=== PATIENT | male | born 1980 | race American Indian/Alaskan Native ===

== ENCOUNTER 2016-12-05 13:48 | Emergency (ER) | payer OTHER ==
[2016-12-05 14:27] VITALS: BP 138/90
[2016-12-05] MEDS ORDERED: DUONEB 0.5 MG-3 MG/3 ML SOLN IH ONE ×3 (15:14→16:57)
[2016-12-05] MEDS ORDERED: MOTRIN PO ONE (15:17)
--- NOTE | 2016-12-05 15:34 | Emergency Department Report ---
Upper Respiratory HPI - HPI Duration: 3 Days URI Symptoms: Rhinorrhea: Yes, Sore Throat: No, Ear Pain: No, Cough: Yes, Shortness of Breath: No, Sick Contacts: No, Unable to Take Fluids: No, Urine Output Abnormal: No, Listless Behavior: No Other History: This is a 36 year male that presents with a cough and diagnosed with past 3 days. Patient stated has seasonal pollen allergies in the past 2 days he has been cutting grass. Patient stated right after cutting grass patient started to experience a cough or runny nose. Patient denies any mucous with cough, fever, chills, shortness of breath, chest pain, nausea or vomiting. Patient has a history of asthma. Last asthma treatment was with albuterol inhaler which was yesterday. Patient does not seem toxic or ill appearance. No signs of distress noted. Patient stated is currently wheezing but with no shortness of breath. She stated has quit smoking tobacco since Monday. Patient denies the diagnosed with COPD. Patient stated has been following with her primary care doctor for asthma and stated that his pulse is normally between 91-96. <RENZO HUI - Last Filed: 12/05/16 17:52> <BORIS HAY - Last Filed: 12/07/16 08:20> - HPI Chief Complaint: Upper Respiratory Infection Stated Complaint: SINUS/COUGH Time Seen by Provider: 12/05/16 15:03 - Home Meds and Allergies Home Medications: Previous Rx's Medication Instructions Recorded Last Taken Type ALBUTEROL Inhaler [ProAir HFA 2 puff IH QID PRN #1 inhalation 12/05/16 Unknown Rx Inhaler] Prednisone [predniSONE] 40 mg PO QDAY 5 Days 12/05/16 Unknown Rx Allergies/Adverse Reactions: Allergies Allergy/AdvReac Type Severity Reaction Status Date / Time No Known Allergies Allergy Unverified 12/05/16 14:23 ED Review of Systems ROS: Stated complaint: SINUS/COUGH Other details as noted in HPI Constitutional: denies: chills, fever Eyes: denies: eye pain, eye discharge, vision change ENT: denies: ear pain, throat pain Respiratory: cough (nonproductive), wheezing. denies: orthopnea, shortness of breath, SOB with exertion, SOB at rest, stridor Cardiovascular: denies: chest pain, palpitations, dyspnea on exertion, edema, syncope Endocrine: no symptoms reported Gastrointestinal: denies: abdominal pain, nausea, diarrhea Genitourinary: denies: urgency, dysuria Musculoskeletal: denies: back pain, joint swelling, arthralgia Skin: denies: rash, lesions Neurological: denies: headache, weakness, paresthesias Psychiatric: denies: anxiety, depression Hematological/Lymphatic: denies: easy bleeding, easy bruising <RENZO HUI - Last Filed: 12/05/16 17:52> ROS: Stated complaint: SINUS/COUGH Other details as noted in HPI <MENDELCHRISTYBORIS - Last Filed: 12/07/16 08:20> ED Past Medical Hx - Past Medical History Previous Medical History?: Yes Hx Hypertension: Yes Additional medical history: High cholesterol - Surgical History Past Surgical History?: No - Social History Smoking Status: Current Some Day Smoker Substance Use Type: Non Opiate Pain, Other <RENZO HUI - Last Filed: 12/05/16 17:52> <BORIS HAY - Last Filed: 12/07/16 08:20> - Medications Home Medications: Home Medications Medication Instructions Recorded Confirmed Last Taken Type ALBUTEROL Inhaler [ProAir HFA 2 puff IH QID PRN #1 inhalation 12/05/16 Unknown Rx Inhaler] Prednisone [predniSONE] 40 mg PO QDAY 5 Days 12/05/16 Unknown Rx ED Bronchiolitis Physical Exam - Exam General: Vital signs noted. No distress. Alert and acting appropriately. O2 sats 94. As per patient is normal for him. Bilateral wheezing or upper lower lobes. No symptoms of shortness of breath noted. No chest pain noted. Patient nontoxic or ill appearance. 2+ tonsils. No erythema noted. Normal TMs. Rhinorrhea present. HEENT: Yes Rhinorrhea, No Pharyngeal Erythema, No Conjuctival Injection, No Dry Mucous Membranes Ear: Neither TM Bulge, Neither TM Erythema, Neither EAC Discharge Neck: No Adenopathy, No Rigidity Lungs: Yes Good Air Exchange, Yes Wheezes (bilateral wheezing upper and lower lobes), No Clear Lung Sounds (bilateral wheezing and upper lower lobes.), No Stridor, No Cough, No Nasal Flaring, No Retractions, No Use of Accessory Muscles Heart: Yes Regular, No Murmur Abdomen: Yes Normal Bowel Sounds, No Tenderness, No Peritoneal Signs Skin: No Rash, No Eczema Neurologic: Alert and oriented, no deficits. Musculoskeletal: Unremarkable. <RENZO HUI - Last Filed: 12/05/16 17:52> - Exam General: Vital signs noted. No distress. Alert and acting appropriately. Neurologic: Alert and oriented, no deficits. Musculoskeletal: Unremarkable. <BORIS HAY - Last Filed: 12/07/16 08:20> ED Bronchiolitis Tests - Testing Other Tests: Peak flow meter- 200 before treatment. 240 after 1st treatment at 1445. 290 after 3rd treatment at 1515 <RENZO HUI - Last Filed: 12/05/16 17:52> Treatments - Treaments Treatment: Improved Albuterol (duoneb x3 ) <RENZO HUI - Last Filed: 12/05/16 17:52> ED Physical Exam - General Limitations: No Limitations General appearance: alert, in no apparent distress - Head Head exam: Present: atraumatic, normocephalic - Eye Eye exam: Present: normal appearance, PERRL, EOMI - ENT ENT exam: Present: normal exam, normal orophraynx, mucous membranes moist, TM's normal bilaterally - Neck Neck exam: Present: normal inspection, full ROM. Absent: tenderness, lymphadenopathy - Respiratory Respiratory exam: Present: normal lung sounds bilaterally, wheezes (bilateral upper and lower lobes). Absent: respiratory distress, rales, rhonchi, stridor, chest wall tenderness, accessory muscle use, decreased breath sounds - Cardiovascular Cardiovascular Exam: Present: regular rate, normal rhythm. Absent: systolic murmur, diastolic murmur, rubs, gallop - GI/Abdominal GI/Abdominal exam: Present: soft, normal bowel sounds. Absent: distended, tenderness, guarding, rebound, rigid - Rectal Rectal exam: Present: deferred - Extremities Exam Extremities exam: Present: normal inspection, normal capillary refill (<2 seconds). Absent: full ROM, tenderness, pedal edema, calf tenderness - Back Exam Back exam: Present: normal inspection, full ROM. Absent: tenderness, CVA tenderness (R), CVA tenderness (L) - Neurological Exam Neurological exam: Present: alert, oriented X3, CN II-XII intact, normal gait - Psychiatric Psychiatric exam: Present: normal affect, normal mood - Skin Skin exam: Present: warm, dry, intact, normal color. Absent: rash <RENZO HUI - Last Filed: 12/05/16 17:52> ED Course Vital Signs 12/05/16 14:24 Temperature 98.1 F Pulse Rate 108 H Respiratory 20 Rate Blood Pressure 138/90 O2 Sat by Pulse 94 Oximetry Vital Signs 12/05/16 12/05/16 12/05/16 14:24 15:33 15:34 Temperature 98.1 F Pulse Rate 108 H Pulse Rate [ 112 H 112 H Anterior Bilateral Throughout] Respiratory 20 Rate Respiratory 18 18 Rate [Anterior Bilateral Throughout] Blood Pressure 138/90 O2 Sat by Pulse 94 Oximetry 12/05/16 12/05/16 12/05/16 15:40 16:50 17:51 Temperature Pulse Rate 86 Pulse Rate [ Anterior Bilateral Throughout] Respiratory 24 Rate Respiratory Rate [Anterior Bilateral Throughout] Blood Pressure O2 Sat by Pulse 96 96 Oximetry - Reevaluation(s) Reevaluation #1: 12/05/16 17:47 Dr. Hay as an aware of the patient and sign and symptoms. Patient received DuoNeb 3. Patient is not toxic or ill appearance. No signs of distress noted. At this time the patient denies shortness of breath patient states feels much better. His walk around. Reevaluation #2: 12/05/16 17:48 Chest x-ray negative Reevaluation #3: 12/05/16 17:49 Dr. Hay aware of labs and treatment plan. Agrees to d/c with presdinsone and albuterol. <RENZO HUI - Last Filed: 12/05/16 17:52> Vital Signs 12/05/16 12/05/16 12/05/16 14:24 15:33 15:34 Temperature 98.1 F Pulse Rate 108 H Pulse Rate [ 112 H 112 H Anterior Bilateral Throughout] Respiratory 20 Rate Respiratory 18 18 Rate [Anterior Bilateral Throughout] Blood Pressure 138/90 O2 Sat by Pulse 94 Oximetry 12/05/16 12/05/16 12/05/16 15:40 16:50 17:51 Temperature Pulse Rate 86 Pulse Rate [ Anterior Bilateral Throughout] Respiratory 24 Rate Respiratory Rate [Anterior Bilateral Throughout] Blood Pressure O2 Sat by Pulse 96 96 Oximetry <BORIS HAY - Last Filed: 12/07/16 08:20> ED Medical Decision Making - Lab Data Result diagrams: 12/05/16 16:23 12/05/16 16:23 - Medical Decision Making Ed course: 36-year-old male that presents with wheezing status post outside gardening. 1- Dr. Hay is aware of patient and labs. Agrees to treatment plan and d/c plan 2- at this time the patient does not seem toxic or ill in appearance. No signs of any distress or shortness of breath noted. Patient is walking and mother is currently present with the patient. 3-instructed the patient to follow-up with her honing machine operator production as soon as possible 4- patient received Solu-Medrol IM 40 mg in the ER. Patient tolerated well no signs of distress noted. 5- patient received DuoNeb 3 treatments. Patient tolerated DuoNeb. stated is feeling a lot better. 6- peak flow meter has been measured 3 times. The best that at 3 is 280 before discharge. 7- patient is discharged with prednisone for 5 days and albuterol. 8- at the time of discharge the patient does not seem toxic or ill.. Patient does not seem shortness of breath. No signs of any respiratory distress. Patient received discharge plan. Stating he'll follow up tomorrow with the honing machine operator production. Mother agrees to treatment plan. Further questions noted by the patient. <RENZO HUI - Last Filed: 12/05/16 17:52> - Lab Data Result diagrams: 12/05/16 16:23 12/05/16 16:23 <BORIS HAY - Last Filed: 12/07/16 08:20> Critical care attestation.: If time is entered above; I have spent that time in minutes in the direct care of this critically ill patient, excluding procedure time. <RENZO HUI - Last Filed: 12/05/16 17:52> Critical care attestation.: If time is entered above; I have spent that time in minutes in the direct care of this critically ill patient, excluding procedure time. <BORIS HAY - Last Filed: 12/07/16 08:20> ED Disposition Is pt being admited?: No Does the pt Need Aspirin: No <RENZO HUI - Last Filed: 12/05/16 17:52> <BORIS HAY - Last Filed: 12/07/16 08:20> Disposition: DISCHARGED TO HOME OR SELFCARE Condition: Stable Instructions: Asthma (ED) Additional Instructions: Follow up with the honing machine operator production within 24 hours. Take prescription as prescribed. It is full course of prednisone as prescribed. Sinus symptoms worsen such as difficulty breathing, shortness of breath, chest pain, or dizziness report back to emergency room. Prescriptions: ALBUTEROL Inhaler [ProAir HFA Inhaler] 2 puff IH QID PRN #1 inhalation PRN Reason: Shortness Of Breath Prednisone [predniSONE] 40 mg PO QDAY 5 Days Referrals: PRIMARY CAREMD [Primary Care Provider] - 3-5 Days AVERY GALE MD [Staff Physician] - 24 Hours [facility] [Outside] - 3-5 Days [facility] [Outside] - 3-5 Days Forms: Work/School Release Form(ED)
--- NOTE | 2016-12-05 16:24 | XRay Report ---
CHEST 2 VIEWS INDICATION: Shortness of breath for 3-4 days. COMPARISON: None similar at this institution. FINDINGS: PA and lateral chest radiographs demonstrate normal cardiomediastinal silhouette. Clear lungs. Intact bones. CONCLUSION: No acute disease in the chest. Thank you for the opportunity to participate in this patient's care.
[2016-12-05 16:36] LABS: Basophils % (Auto) 0.2 % (0.0-1.8); Eosinophils % (Auto) 1.7 % (0.0-4.3); Hematocrit 46.1 % (35.5-45.6); Hemoglobin 15.4 gm/dl (11.8-15.2); Mean Corpuscular HGB Conc 33 % (32-34); Mean Corpuscular Hemoglobin 28 pg (28-32); Mean Corpuscular Volume 83 fl (84-94); Platelet Count 238 K/mm3 (140-440); Red Blood Count 5.56 M/mm3 (3.65-5.03); Red Cell Distribution Width 13.9 % (13.2-15.2); White Blood Count 11.9 K/mm3 (4.5-11.0)
[2016-12-05 17:00] LABS: Anion Gap 21 mmol/L; BUN/Creatinine Ratio 7.77; Blood Urea Nitrogen 7 mg/dL (9-20); Calcium 9.3 mg/dL (8.4-10.2); Carbon Dioxide 24 mmol/L (22-30); Chloride 96.4 mmol/L (98-107); Glucose 121 mg/dL (75-100); Potassium 3.7 mmol/L (3.6-5.0); Sodium 138 mmol/L (137-145)
[2016-12-05 17:19] LABS: Bilirubin,Urine NEG (Negative); Blood,Urine SM (Negative); Ketones,Urine 20 mg/dL (Negative); Leukocyte Esterase,Urine NEG (Negative); Mucus,Urine 3+ /HPF; Nitrite,Urine NEG (Negative); Urobilinogen,Urine < 2.0 mg/dL (<2.0)
== END 2016-12-05 18:06 | disposition home or self-care (01) ==
LOC: ED 13:48
DX: J34.89 Other specified disorders of nose and nasal sinuses (principal); I10 Essential (primary) hypertension; E78.00 Pure hypercholesterolemia, unspecified; Z72.0 Tobacco use
CPT/HCPCS: 36415; 71020; 80048; 81001; 83880; 85025; 94640; 96372; 99284; J2920